=== PATIENT | male | born 1980 | race Caucasian/White ===

== ENCOUNTER 2024-07-31 10:07 | Outpatient (REF) | payer MEDICAID, SELFPAY ==
--- NOTE | ~2024-07-31 | XR_ITS ---
EXAMINATION: XR LUMBOSACRAL SPINE CLINICAL INFORMATION: LOW BACK PAIN COMPARISON: None available. TECHNIQUE: Three views of the lumbosacral spine. FINDINGS: Mild dextroconvex curvature of the lumbar spine. Mild multilevel endplate sclerosis and marginal osteophyte formation. No acute cortical disruption or gross malalignment. XR/XR lumbar spine 2-3V IMPRESSION: Mild multilevel spondylosis and mild dextroconvex scoliosis. Electronically signed by: Epifanio Rodriguez MD 07/31/2024 12:46 PM EDT
--- OUTSIDE RECORDS SUMMARY | 2024-07-31 11:27 | XMS_ITS | Encounter Summary ---
Author Organization [facility] Address [address] [place] [address] Care Team Providers Care Road Oiling Truck Driver Name Role Phone Aaron Thakkar MD Primary Care Provider Unavaila ble Encounter Details Date Type Department Care Team (Late st Contact Info) Description 01/09/2007 Orders Only [facility] [address] [place] [phone] Aaron Thakkar MD Social History Tobacco Use Types Packs/Day Years Used Date Smoking Tobacco: Every Day Alcohol Use Standard Drinks/Week Comments Yes 0 (1 standard drink = 0.6 oz pur e alcohol) LOW Sex and Gender Information Value Date Recorded Sex Assigned at Not on file Legal Sex Male 11:14 PM EDT Gender Identity Not on file Sexual Orientation Not on file 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
--- OUTSIDE RECORDS SUMMARY | 2024-07-31 11:27 | XMS_ITS | Encounter Summary ---
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
--- OUTSIDE RECORDS SUMMARY | 2024-07-31 11:27 | XMS_ITS | Encounter Summary ---
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
--- OUTSIDE RECORDS SUMMARY | 2024-07-31 11:27 | XMS_ITS | Clinical Summary ---
Author Organization [facility] Address [address] [place] [address] Care Team Providers Care Sole Tier Name Role Phone Unavailable Primary Care Provider Unavailabl e Social History Tobacco Use Types Packs/Day Years Used Date Smoking Tobacco: Never Assessed Sex and Gender Information Value Date Recorded Sex Assigned at Not on file Legal Sex Male 10:08 AM EST Gender Identity Not on file Sexual Orientation Not on file Plan of Treatment Not on file
--- OUTSIDE RECORDS SUMMARY | 2024-07-31 11:28 | XMS_ITS | Encounter Summary ---
Author Organization [facility] Address [address] [place] [address] Care Team Providers Care Yeast Stacker Name Role Phone Aaron Thakkar MD Primary Care Provider Unavaila ble Encounter Details Date Type Department Care Team (Late st Contact Info) Description 12/22/2006 Orders Only [facility] [address] [place] [phone] Aaron Thakkar MD Social History Tobacco Use Types Packs/Day Years Used Date Smoking Tobacco: Never Assessed Sex and Gender Information Value Date Recorded Sex Assigned at Not on file Legal Sex Male 11:14 PM EDT Gender Identity Not on file Sexual Orientation Not on file documented as of this encounter Plan of Treatment Not on file documented as of this encounter Visit Diagnoses Not on filedocumented in this encounter Care Teams Yeast Stacker Relationship Specialty Start Date End Date Aaron Thkakar MD PCP - General 12/22/06 04/23/08 documented as of this encounter
--- OUTSIDE RECORDS SUMMARY | 2024-07-31 11:28 | XMS_ITS | Clinical Summary ---
Author Organization [facility] Address [address] [place] [address] Care Team Providers Care Photographic Machine Operator Name Role Phone Jason Garay MD Primary Care Provider [phone] Surgical History Surgery Date Site/Laterality Comments APPENDECTOMY PROCEDURE:APPENDECTOMY Medical History Medical History Date Comments ADHD (attention deficit hype ractivity disorder) DX:ADHD (attention deficit h yperactivity disorder) Anxiety DX:Anxiety Sciatica DX:Sciatica Social History Tobacco Use Types Packs/Day Years Used Date Smoking Tobacco: Former Smokeless Tobacco: Never Alcohol Use Standard Drinks/Week Comments Yes 0 (1 standard drink = 0.6 oz pur e alcohol) Sex and Gender Information Value Date Recorded Sex Assigned at Not on file Legal Sex Male 6:24 AM EST Gender Identity Not on file Sexual Orientation Not on file Obstetrics History Plan of Treatment Health Maintenance Due Date Last Done Comments DTaP,Tdap,and Td Vaccines (1 - Tdap) 1997 Hepatitis B Vaccines (1 of 3 - 19+ 3-dose series) 1997 Cholesterol Screening (Lipid Panel) 03/27/2022 Colorectal Cancer Screening: Colonoscopy 03/27/2022 Depression Screening 03/27/2022 HIV Screening 03/27/2022 Hepatitis C Screening 03/27/2022 Social Influencers of Health Screening 03/27/2022 COVID-19 Vaccine (2023-2 5 season) 2023 Influenza Vaccine (#1) 2023 HIB Vaccines Aged Out No longer eligi ble based on patient's age to complete this topic HPV Vaccines Aged Out No longer eligi ble based on patient's age to complete this topic Hepatitis A Vaccines Aged Out No long er eligible based on patient's age to complete this topic IPV Vaccines Aged Out No longer eligi ble based on patient's age to complete this topic MMR Vaccines Aged Out No longer eligi ble based on patient's age to complete this topic Meningococcal ACWY Vaccine Aged Out N o longer eligible based on patient's age to complete this topic Meningococcal B Vaccine Aged Out No l onger eligible based on patient's age to complete this topic Pneumococcal Vaccine: Pediat rics (0 to 5 Years) and At-Risk Patients (6 to 64 Years) Aged Out No longer eligible b ased on patient's age to complete this topic RSV Immunization Patients Un sebastien 20 months Aged Out No longer eligible b ased on patient's age to complete this topic Varicella Vaccines Aged Out No longer eligible based on patient's age to complete this topic Care Teams Photographic Machine Operator Relationship Specialty Start Date End Date Jason Garay MD [address] [place] PCP - General 02/02/23
--- OUTSIDE RECORDS SUMMARY | 2024-07-31 11:28 | XMS_ITS | Encounter Summary ---
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
--- OUTSIDE RECORDS SUMMARY | 2024-07-31 11:28 | XMS_ITS | Clinical Summary ---
Author Organization [facility] Address [address] [place] [id number] Care Team Providers Care Pharmacy Data Analyst Name Role Phone Jason Garay MD Primary Care Provider [phone] Allergies Active Allergy Reactions Criticality Noted Date Comments Amoxicillin-Pot Clavulanate 11/05/19 17 Medications Medication Sig Dispensed Refills Start Date End Date Status QUEtiapine (SEROQUEL) 300 MG tablet Take 300 mg by mouth every night at bedtime. 0 Active Amphetamine-Dextroamp hetamine (ADDERALL PO) Take by mouth. 0 Active tiZANidine (Zanaflex) 4 MG tablet Take 1 tablet (4 mg total) by mouth every 6 (six) hours as needed. 30 tablet 0 09/16/2020 Active erythromycin (ROMYCIN) ophthalmic ointment Place into both eyes every 6 (six) hours. 3.5 g 0 02/02/2023 Active Naphazoline-Phenirami ne 0.027-0.315 % SOLN Apply 2 drops to eye 4 (four) times a day. 15 mL 0 02/02/2023 Active traMADol (ULTRAM) 50 MG tablet Take 50 mg by mouth every 8 (eight) hours as needed for pain or severe pain (7-10) for up to 5 doses. 5 tablet 0 07/06/2023 Active Active Problems No known active problems Social History Tobacco Use Types Packs/Day Years Used Date Smoking Tobacco: Former Smokeless Tobacco: Never Tobacco Cessation:Counseling Given: Not Answered Alcohol Use Standard Drinks/Week Comments Yes 0 (1 standard drink = 0.6 oz pur e alcohol) social/rare Sex and Gender Information Value Date Recorded Sex Assigned at Male 12/11/2019 10:46 PM EDT Gender Identity Not on file Sexual Orientation Not on file Job Start Date Occupation Industry Not on file Not on file Not on file Last Filed Vital Signs Vital Sign Reading Time Taken Comments Blood Pressure 147/97 07/06/2023 1:45 PM EDT Pulse 102 07/06/2023 1:45 PM EDT Temperature 36.6 ??C (97.9 ??F) 07/06/2023 11:30 AM E DT Respiratory Rate 18 07/06/2023 1:45 PM EDT Oxygen Saturation 97% 07/06/2023 1:45 PM EDT Inhaled Oxygen Concentration - - Weight 91.2 kg (201 lb) 07/06/2023 11:30 AM EDT Height 177.8 cm (5' 10 ) 07/06/2023 11:30 AM EDT Body Mass Index 28.84 07/06/2023 11:30 AM EDT Plan of Treatment Not on file Care Teams Pharmacy Data Analyst Relationship Specialty Start Date End Date Jason Garay MD [address] [place] [address] PCP - General Internal Medicine 02/02/23
--- OUTSIDE RECORDS SUMMARY | 2024-07-31 11:28 | XMS_ITS | Encounter Summary ---
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
--- OUTSIDE RECORDS SUMMARY | 2024-07-31 11:28 | XMS_ITS | Encounter Summary ---
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
--- OUTSIDE RECORDS SUMMARY | 2024-07-31 11:28 | XMS_ITS | Clinical Summary ---
Author Organization [facility] Address [address] [place] [address] Care Team Providers Care Continuous Mining Machine Company Miner Name Role Phone Unavailable Primary Care Provider Unavailabl e Allergies Active Allergy Reactions Criticality Noted Date Comments Amoclan Maculopapular Rash 12/22/2006 Medications PARAFON FORTE DSC 500 MG OR TABS 1 TABLET 4 TIMES DAILY 28 1 02/13/2007 Active KLONOPIN 2 MG OR TABS 1 TABLET 3 TIMES DAILY 90 0 12/10/2007 Active PAROXETINE HCL (PAXIL) 40 MG OR TABS 1 TABLET DAILY 30 0 02/19/2008 Active Social History Tobacco Use Types Packs/Day Years [...] 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 Not on file Not o n file Last Filed Vital Signs Vital Sign Reading Time Taken Comments Blood Pressure 98/72 02/19/2007 10:53 AM EDT Pulse 106 02/19/2007 10:53 AM EDT Temperature 36.5 ??C (97.7 ??F) 02/13/2007 8:38 AM ED T Respiratory Rate - - Oxygen Saturation - - Inhaled Oxygen Concentration - - Weight 85.7 kg (189 lb) 02/13/2007 8:38 AM EDT Height 177.8 cm (5' 10 ) 02/13/2007 8:38 AM EDT Body Mass Index 27.12 02/13/2007 8:38 AM EDT Plan of Treatment Health Maintenance Due Date Last Done Comments Hepatitis C Screening 1978 DTaP/Tdap/Td (1 - Tdap) 01/27/1996 Hep B (1 of 3 - 19+ 3-dose series) 1997 COVID-19 Vaccine (2023-2 5 season) 2023 Influenza (#1) 2023 Zoster (Shingrix) (1 of 2) 01/27/2028 HPV Vaccine Aged Out No longer eligi ble based on patient's age to complete this topic Hep A Aged Out No longer eligi ble based on patient's age to complete this topic Hib Aged Out No longer eligi ble based on patient's age to complete this topic Meningococcal ACWY Aged Out No longer eligible based on patient's age to complete this topic Pneumococcal Aged Out No longer eligi ble based on patient's age to complete this topic
--- OUTSIDE RECORDS SUMMARY | 2024-07-31 11:28 | XMS_ITS ---
Author Name [facility] Organization Unknown Results Test Name/Text Value Interpretation Date Range Source Clarity Ur Refract.auto CLEAR Normal [id number] [facility] Prot Ur Ql Strip.auto NEGATIVE Normal [id number] - [facility] Glucose Ur Ql Strip.auto NEGATIVE Normal [id number] - [facility] Nitrite Ur Ql Strip.auto NEGATIVE Normal [id number] - [facility] Hgb Ur Ql Strip.auto NEGATIVE Normal [id number] - [facility] Ketones Ur Ql Strip.auto NEGATIVE Normal [id number] - [facility] Leukocyte esterase Ur Ql Strip.auto NEGATIVE Normal [id number] - [facility] Sp Gr Ur Strip.auto 1.025 Normal [id number] 1.005 - 1.03 [facility] pH Ur Strip.auto 7 Normal [id number] 4.5 - 8 [facility] SPECIMEN SOURCE XXX URINE CLEAN CATCH Normal [id number] [facility] History of Medication Use Medication Directions Dispensed Refills Start Date End Date Stat erythromycin (ROMYCIN) ophthalmic ointment Place into both eyes every 6 (six) hours. 02/02/2023 active QUEtiapine (SEROQUEL) 300 MG tablet Take 300 mg by mouth every night at bedtime. active Problems Problem Status Onset Date Problem Type Date of Resolution Source Lumbar radiculopathy active Encounter[facility]osis[facility] Encounters Encounter Type Encounter Reason Primary Diagnosis Location Date Emergency Radiculopathy, lumba r region Radiculopathy, lumbar region [facility] 07/06/2023 Emergency Unspecified acute conjunctivitis, bilateral Unspecified acute conjunctivitis, bilateral [facility] 02/02/2023 Care Team Organization Name Specialty Phone Email Start Date End Da te [facility] 05/14/2023 [facility] 2022 [facility] 02/0202/02/2023
== END 2024-07-31 10:08 | disposition home or self-care (01) ==
LOC: HO.XRAY 10:07
PROVIDERS: PCP Internal Medicine; Visit Provider Internal Medicine
DX: M54.50 Low back pain, unspecified (principal)
CPT/HCPCS: 72100

== ENCOUNTER → 2024-07-31 10:20 | Outpatient (BNV) | payer MEDICAID, SELFPAY | PROVIDERS: PCP Internal Medicine; Visit Provider Radiology Diagnostic Radiology | DX: M54.50 Low back pain, unspecified (principal) | CPT/HCPCS: 72100 ==

== ENCOUNTER 2024-10-15 19:27 | Outpatient (REF) | payer MEDICAID, SELFPAY ==
--- NOTE | ~2024-10-15 | MR_ITS ---
Workstation: [id number] EXAMINATION: MR LUMBAR SPINE WITHOUT IV CONTRAST History: LBP RADIATING DOWN RT LEG R/O DISC Technique: Sagittal T1, T2 and STIR, and axial T1 and T2 weighted images of the lumbar spine were obtained per departmental protocol. Comparison: Correlation is made with plain films of the lumbar spine dated 07/31/2024. Findings: There is slight dextroscoliosis. The vertebral bodies maintain normal height and marrow signal intensity. There is no spondylolisthesis. There is mild degenerative disc disease at L1-2 and L4-5, and moderate degenerative disc disease at L5-S1, with disc desiccation and loss of disc height. At T12-L1,there is no evidence of disc herniation, central spinal stenosis, or neural foraminal narrowing. At L1-2, there is no evidence of disc herniation, central spinal stenosis, or neural foraminal narrowing. At L2-3, there is no evidence of disc herniation, central spinal stenosis, or neural foraminal narrowing. At L3-4, there is no evidence of disc herniation, central spinal stenosis, or neural foraminal narrowing. At L4-5, there is a mild disc bulge. There is facet and ligamentum flavum hypertrophy without central spinal or neural foraminal stenosis. At L5-S1, there is a moderate disc bulge. There is a superimposed small central disc protrusion. There is facet hypertrophy causing narrowing of the inferior recess of the right neural foramen. There is no central spinal or right neural foraminal stenosis. The conus terminates at the T12-L1 level and demonstrates normal signal intensity. The visualized paraspinal soft tissues are unremarkable. MR/MR lumbar spine wo con Impression: Slight dextroscoliosis. Degenerative changes as described. Small central disc protrusion at L5-S1. Electronically signed by: Gato Green MD 10/16/2024 08:02 AM EDT
== END 2024-10-15 19:28 | disposition home or self-care (01) ==
LOC: HO.MRI 19:27
PROVIDERS: PCP Internal Medicine; Visit Provider Internal Medicine
DX: M54.50 Low back pain, unspecified (principal)
CPT/HCPCS: 72148

== ENCOUNTER → 2024-10-15 19:40 | Outpatient (BNV) | payer MEDICAID, SELFPAY | PROVIDERS: PCP Internal Medicine; Visit Provider Radiology Diagnostic Radiology | DX: M51.27 Other intervertebral disc displacement, lumbosacral region (principal); M51.362 Other intervertebral disc degeneration, lumbar region with discogenic back pain and lower extremity pain | CPT/HCPCS: 72148 ==